=== PATIENT | male | born 1970 | race Two or more races ===

== ENCOUNTER 2016-12-23 15:31 | Emergency (ER) | payer SELFPAY ==
--- NOTE | 2016-12-23 16:57 | RADIOLOGY REPORT (SQ) ---
EXAM DESCRIPTION: CHEST PA/LAT; SOFT TISSUE NECK COMPLETED DATE/TIME: 12/23/2016 4:39 pm REASON FOR STUDY: Pt swallowed metal from wire brush COMPARISON: None. FINDINGS: Two views of the neck for soft tissue detail: Reveal a roughly 9 mm curvilinear metallic presumed foreign body, lateral view only posterior to the thyroid cartilage. Presumably correlating with the ingested metallic wire. Two view chest: Clear lungs. No other foreign bodies identified. No pneumothorax. IMPRESSION: Presumed foreign body, lateral view only, neck image. This appears to be in the upper e sophagus. TECHNICAL DOCUMENTATION: JOB ID: [id number]
--- NOTE | 2016-12-23 18:00 | ER Document Report ---
HPI - HPI Pain Level: 5 Notes: Patient is a 46-year-old male presents to the ED complaining of possible metal foreign body ingestion yesterday while eating a hot dog. Patient states that he believes a piece of metal from his wire brush ended up in his food that he swallowed. Patient states he can feel something in his throat near the base of his neck when he turns his head to the left he can also feel poking. Patient states he still able to eat and drink every time he swallows he feels like there is something stuck in his throat. Otherwise he is still eating and drinking with no problems. Denies any fever, headaches, URI, sore throat, cough , wheeze, dyspnea, shortness of breath, chest pain, palpitations, syncope, abdominal pain, nausea/vomiting/diarrhea, dysuria, or rash. - ROS Notes: REVIEW OF SYSTEMS: CONSTITUTIONAL : Denies fever, chills, or sweats. Denies recent illness. EENT: see HPI CARDIOVASCULAR: Denies chest pain. Denies palpitations or racing or irregular heart beat. Denies ankle edema. RESPIRATORY: Denies cough, cold, or chest congestion. Denies shortness of breath, difficulty breathing, or wheezing. GASTROINTESTINAL: Denies abdominal pain or distention. Denies nausea, vomiting , or diarrhea. Denies blood in vomitus, stools, or per rectum. Denies black, tarry stools. Denies constipation. GENITOURINARY: Denies difficulty urinating, painful urination, burning, frequency, blood in urine, or discharge. MUSCULOSKELETAL: Denies back or neck pain or stiffness. Denies joint pain or swelling. SKIN: Denies rash, lesions or sores. NEUROLOGICAL: Denies dizziness or lightheadedness. Denies headache. Denies problems with gait or speech. Denies sensory loss, numbness, or tingling. ALL OTHER SYSTEMS REVIEWED AND NEGATIVE. Dictation was performed using [employer] voice recognition software - DERM Skin Color: Normal Past Medical History - Social History Smoking Status: Unknown if Ever Smoked Family History: Reviewed & Not Pertinent, Other - Adopted Patient has suicidal ideation: No Patient has homicidal ideation: No - Past Medical History Cardiac Medical History: Denies: Hx Coronary Artery Disease, Hx Heart Attack, Hx Hypertension Pulmonary Medical History: Denies: Hx Asthma, Hx Bronchitis, Hx COPD, Hx Pneumonia Neurological Medical History: Denies: Hx Cerebrovascular Accident, Hx Seizures Renal/ Medical History: Denies: Hx Peritoneal Dialysis GI Medical History: Reports: Hx Gastroesophageal Reflux Disease Musculoskeltal Medical History: 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 HEAD: Atraumatic, normocephalic. EYES: Pupils equal round and reactive to light, extraocular movements intact, sclera anicteric, conjunctiva are normal. ENT: EAC clear b/l. TM's intact b/l without erythema, fluid, or perforation. Nares patent and without discharge. oropharynx clear without exudates. No tonsilar hypertrophy or erythema. Moist mucous membranes. No sinus tenderness. NECK: Normal range of motion, supple without lymphadenopathy. No rigidity. Non -tender. LUNGS: Breath sounds clear to auscultation bilaterally and equal. No wheezes rales or rhonchi. HEART: Regular rate and rhythm without murmurs, rubs, gallops. ABDOMEN: Soft, nontender, nondistended abdomen. No guarding, no rebound. No masses appreciated. Normal bowel sounds present. No CVA tenderness bilaterally. PSYCH: Normal mood, normal affect. SKIN: Warm, Dry, normal turgor, no rashes or lesions noted. - INFECTION CONTROL TRAVEL OUTSIDE OF THE [place] IN LAST 30 DAYS: No - RESPIRATORY O2 Sat by Pulse Oximetry: 98 Course - Re-evaluation Re-evalutation: 12/23/16 [address] Johnson: Patient is an afebrile, well-hydrated, 46-year-old male who presents to the ED with a foreign body to his esophagus suspected to be the reported piece of metal from his wire brush. Vitals are stable. PE otherwise unremarkable. There is no respiratory compromise or distress at this time. X-rays of the neck and the chest show that there is an 8.5-9 mm foreign body to the upper esophagus near the base of his neck. Patient warrants transfer as our general surgeon does not do scopes. CBC, CMP, EKG were ordered and all negative/ unremarkable. Discussed case with Dr. Rey Elliott, ENT, of [facility] who accepted patient on an ED to ED transfer. Patient is in agreement with plan. Risks and benefits reviewed about transfer and needing to get the foreign body out of his esophagus including inability to pass , tears, puncture wound(s), and infection. 12/23/16 20:30 Pt was re-evaluated, vital signs stable, no current complaints. EMS arrived and pt is stable for transport. - Vital Signs Vital signs: Temp Pulse Resp BP Pulse Ox 97.7 F 81 24 H 143/82 H 98 12/23/16 15:36 12/23/16 15:36 12/23/16 15:36 12/23/16 15:36 12/23/16 15:36 - Laboratory Result Diagrams: 12/23/16 18:15 12/23/16 18:15 Discharge - Discharge Clinical Impression: Foreign body in esophagus Qualifiers: Encounter type: initial encounter Qualified Code(s): T18.108A - Unspecified foreign body in esophagus causing other injury, initial encounter Condition: Stable Disposition: [facility] Additional Instructions: Instructions per ENT after Transfer and Procedure.
[2016-12-23] MEDS ORDERED: FENTANYL CITRATE INJ/PF 100 MCG/2 ML AMPUL IV ONE (18:08)
[2016-12-23 18:27] LABS: ABSOLUTE BASOPHILS # (AUTO) 0.1 10^3/uL (0.0-0.2); ABSOLUTE EOSINOPHILS # (AUTO) 0.1 10^3/uL (0.0-0.6); ABSOLUTE LYMPHOCYTES (AUTO) 2.2 10^3/uL (0.5-4.7); ABSOLUTE MONOCYTES (AUTO) 0.8 10^3/uL (0.1-1.4); ABSOLUTE NEUT (AUTO) 5.8 10^3/uL (1.7-8.2); BASOPHILS % (AUTO) 0.6 % (0-2); EOSINOPHILS % (AUTO) 1.3 % (0-6); HEMOGLOBIN 16.5 g/dL (13.5-17.0); HGB HCT DIFFERENCE 0.5; LYMPHOCYTES % (AUTO) 24.7 % (13-45); MEAN CORPUSCULAR HEMOGLOBIN 31.7 pg (27.0-33.4); MEAN CORPUSCULAR HGB CONC 33.6 g/dL (32.0-36.0); MEAN CORPUSCULAR VOLUME 94 fl (80-97); MONOCYTES % (AUTO) 8.7 % (3-13); RED BLOOD COUNT 5.19 10^6/uL (4.35-5.55); RED CELL DISTRIBUTION WIDTH 12.6 % (11.5-14.0); SEGMENTED NEUTROPHILS % (AUTO) 64.7 % (42-78); WHITE BLOOD COUNT 8.9 10^3/uL (4.0-10.5)
[2016-12-23 18:51] LABS: ALANINE AMINOTRANSFERASE 69 U/L (21-72); ALBUMIN 4.6 g/dL (3.5-5.0); ALKALINE PHOSPHATASE 89 U/L (38-126); ANION GAP 12 (5-19); ASPARTATE AMINO TRANSFERASE 44 U/L (17-59); BILIRUBIN,DIRECT 0.3 mg/dL (0.0-0.4); BILIRUBIN,TOTAL 0.7 mg/dL (0.2-1.3); BLOOD UREA NITROGEN 12 mg/dL (7-20); CALCIUM 9.6 mg/dL (8.4-10.2); CARBON DIOXIDE 26 mmol/L (22-30); CHLORIDE 101 mmol/L (98-107); CREATININE RESULT 1.05 mg/dL (0.52-1.25); GLUCOSE 89 mg/dL (75-110); POTASSIUM 4.1 mmol/L (3.6-5.0); SODIUM 138.7 mmol/L (137-145); TOTAL PROTEIN 8.1 g/dL (6.3-8.2)
[2016-12-23 20:13] VITALS: BP 119/75
--- NOTE | 2016-12-23 21:40 | EKG REPORT ---
SEVERITY:- OTHERWISE NORMAL ECG - SINUS RHYTHM LEFT AXIS DEVIATION : Confirmed by: Mark Burroughs 23-Dec-2016 21:39:55
== END 2016-12-23 20:20 | disposition short-term general hospital (02) ==
LOC: ER 15:31
DX: T18.108A Unspecified foreign body in esophagus causing other injury, initial encounter (principal); X58.XXXA Exposure to other specified factors, initial encounter; Y93.89 Activity, other specified
CPT/HCPCS: 93005; 99284; 96374; 36415; 85025; 80053; 71020; 70360; 93010; J3010

== ENCOUNTER 2019-12-28 06:30 | Emergency (ER) | payer BC ==
[2019-12-28 08:57] LABS: ABSOLUTE BASOPHILS # (AUTO) 0.1 10^3/uL (0.0-0.2); ABSOLUTE EOSINOPHILS # (AUTO) 0.1 10^3/uL (0.0-0.6); ABSOLUTE LYMPHOCYTES (AUTO) 1.1 10^3/uL (0.5-4.7); ABSOLUTE MONOCYTES (AUTO) 0.9 10^3/uL (0.1-1.4); ABSOLUTE NEUT (AUTO) 9.3 10^3/uL (1.7-8.2); BASOPHILS % (AUTO) 0.5 % (0-2); EOSINOPHILS % (AUTO) 0.8 % (0-6); HEMATOCRIT 45.1 % (37.9-51.0); MEAN CORPUSCULAR HEMOGLOBIN 32.8 pg (27.0-33.4); MEAN CORPUSCULAR HGB CONC 35.4 g/dL (32.0-36.0); MEAN CORPUSCULAR VOLUME 93 fl (80-97); MONOCYTES % (AUTO) 7.6 % (3-13); PLATELET COUNT 141 10^3/uL (150-450); RED BLOOD COUNT 4.87 10^6/uL (4.35-5.55); RED CELL DISTRIBUTION WIDTH 12.7 % (11.5-14.0); SEGMENTED NEUTROPHILS % (AUTO) 81.1 % (42-78); TOTAL CELLS COUNTED % (AUTO) 100 %; WHITE BLOOD COUNT 11.4 10^3/uL (4.0-10.5)
[2019-12-28] MEDS ORDERED: NORMAL SALINE 1000 ML 1,000 ML IV ONE (08:57)
[2019-12-28] MEDS ORDERED: MORPHINE SULFATE 10 MG/ML INJ IV ONE ×2 (08:58→10:53)
[2019-12-28] MEDS ORDERED: ONDANSETRON HCL INJ/PF 4 MG/2 ML SDV IV ONE ×2 (08:59→10:53)
[2019-12-28 09:10] LABS: APPEARANCE,URINE CLEAR; BILIRUBIN,URINE NEGATIVE (NEGATIVE); COLOR,URINE YELLOW; GLUCOSE, URINE NEGATIVE (NEGATIVE); KETONES,URINE NEGATIVE (NEGATIVE); LEUKOCYTE ESTERASE,URINE NEGATIVE (NEGATIVE); NITRITE,URINE NEGATIVE (NEGATIVE); PROTEIN,URINE NEGATIVE (NEGATIVE); URINE SPECIFIC GRAVITY 1.021; UROBILINOGEN,URINE NEGATIVE mg/dL (<2.0)
[2019-12-28 09:18] LABS: ALBUMIN 4.8 g/dL (3.5-5.0); ALKALINE PHOSPHATASE 87 U/L (38-126); ANION GAP 9 (5-19); ASPARTATE AMINO TRANSFERASE 35 U/L (17-59); BLOOD UREA NITROGEN 17 mg/dL (7-20); CALCIUM 9.7 mg/dL (8.4-10.2); CARBON DIOXIDE 25 mmol/L (22-30); CHLORIDE 101 mmol/L (98-107); GLUCOSE 109 mg/dL (75-110); POTASSIUM 3.9 mmol/L (3.6-5.0); TOTAL PROTEIN 8.1 g/dL (6.3-8.2)
[2019-12-28 09:30] LABS: URIC ACID 9.5 mg/dL (3.5-8.5)
[2019-12-28 09:37] LABS: ALCOHOL < 10 mg/dL (NONE DETECTED)
[2019-12-28 09:57] LABS: URINE AMPHETAMINES SCREEN NEGATIVE; URINE BARBITURATES SCREEN NEGATIVE; URINE BENZODIAZEPINES SCREEN NEGATIVE; URINE COCAINE SCREEN NEGATIVE; URINE METHADONE SCREEN NEGATIVE; URINE PHENCYCLIDINE SCREEN NEGATIVE
[2019-12-28 10:00] LABS: URINE MARIJUANA (THC) SCREEN UNCONFIRMED POSITIVE
--- NOTE | 2019-12-28 12:21 | RADIOLOGY REPORT (SQ) ---
EXAM DESCRIPTION: CT ABD/PELVIS WITH IV ORAL IMAGES COMPLETED DATE/TIME: 12/28/2019 10:54 am REASON FOR STUDY: left lower quadrant pain/prior diverticulitis . Right and left lower quadrant abdominal pain. COMPARISON: 06/28/2015, 02/14/2015 TECHNIQUE: CT scan of the abdomen and pelvis performed using helical scanning technique with dynamic intravenous contrast injection. No oral contrast. Images reviewed with lung, soft tissue, and bone windows. Reconstructed coronal and sagittal MPR images reviewed. Delayed images for evaluation of the urinary system also acquired. All images stored on PACS. All CT scanners at this facility use dose modulation, iterative reconstruction, and/or weight based d osing when appropriate to reduce radiation dose to as low as reasonably achievable (ALARA). [facility]: Dose Right [facility]: CareDose [facility]: Dose Right [facility]: Teradose 4D [facility]: [facility] CONTRAST TYPE AND DOSE: contrast/concentration: Isovue 350.00 mmol/ml; Total Contrast Delivered: 100 .0 ml; Total Saline Delivered: 70.0 ml RENAL FUNCTION: GFR > 60. RADIATION DOSE: CT Rad equipment meets quality standard of care and radiation dose reduction techniq ues were employed. CTDIvol: 17.0 - 20.1 mGy. DLP: 2090 mGy-cm.. LIMITATIONS: None FINDINGS: LOWER CHEST: No significant findings. No nodules or infiltrates. LIVER: The liver is enlarged measuring 26.3 cm craniocaudal at the midclavicular line. Moderate diff use hepatic steatosis. 1 cm hepatic cyst in the right hepatic lobe is unchanged. No suspicious hepa tic mass. Hepatic and portal veins are patent. No biliary ductal dilation. SPLEEN: The spleen is mildly enlarged measuring 13.4 cm craniocaudal at the midclavicular line. No f ocal mass or perisplenic fluid. PANCREAS: No masses. No significant calcifications. No adjacent inflammation or peripancreatic fluid collections. Pancreatic duct not dilated. GALLBLADDER: No identified stones by CT criteria. No inflammatory changes to suggest cholecystitis. ADRENAL GLANDS: No significant masses or asymmetry. RIGHT KIDNEY AND URETER: Right inferior pole parapelvic cyst. No solid mass. No significant calcif ications. No hydronephrosis or hydroureter. LEFT KIDNEY AND URETER: No solid masses. No significant calcifications. No hydronephrosis or hydr oureter. AORTA AND VESSELS: No aneurysm. No dissection. Renal arteries, SMA, celiac without stenosis. RETROPERITONEUM: No retroperitoneal adenopathy, hemorrhage or masses. BOWEL AND PERITONEAL CAVITY: There is sigmoid colon wall thickening and surrounding inflammatory watts ge involving a long segment of the sigmoid colon to the level of the rectum. A few scattered colonic diverticula without acute diverticulitis. There is no bowel obstruction. The proximal colon has a normal appearance. Small hiatal hernia. No ascites or pneumoperitoneum. APPENDIX: Normal. PELVIS: Prostate has normal size. Urinary bladder is relatively decompressed. Despite underdistenti on, there is diffuse bladder wall thickening, which may be reactive secondary to inflammatory change in the pelvis. Bladder wall measures up to 11 mm thickness. ABDOMINAL WALL: No masses. No hernias. BONES: No significant or acute findings. OTHER: No other significant finding. IMPRESSION: 1. Acute sigmoid colitis, which could be seen with infectious or inflammatory colitis such as Crohn d isease. Clinical correlation and correlation with endoscopy after treatment for acute inflammatory c hange is recommended. No perforation or peritoneal abscess. 2. Bladder wall thickening which may be reactive secondary to the inflammatory change adjacent at the sigmoid colon. No focal bladder mass. 3. Small hiatal hernia. TECHNICAL DOCUMENTATION: JOB ID: [id number] Quality ID # [id number]: Final reports with documentation of one or more dose reduction techniques (e.g., Au tomated exposure control, adjustment of the mA and/or kV according to patient size, use of iterative reconstruction technique) 2010 [employer]- All Rights Reserved Reading location - IP/workstation name: [email or web address]
[2019-12-28] MEDS ORDERED: COLCHICINE 0.6 MG TABLET PO ONE (13:56)
[2019-12-28] MEDS ORDERED: METHYLPREDNISOLONE INJ 125 MG/2 ML SDV IV ONE (13:59)
[2019-12-28] MEDS ORDERED: CIPROFLOXACIN 400 MG/D5W RTU 400 MG/200 ML RTUPB IV SCH (14:00)
--- NOTE | 2019-12-28 16:57 | ER Document Report ---
Entered by GUICHO MON SCRIBE 12/28/19 0916 Acting as scribe for:SHANTELL SR MD ED GI/ - General Chief Complaint: Abdominal Pain Stated Complaint: ABDOMINAL AND BACK PAIN Time Seen by Provider: 12/28/19 08:39 Information source: Patient Notes: This 49 year old male patient presents to the emergency department today with complaints of abdominal pain. Patient states he has a history of diverticulitis and this pain is similar. Patient states his urine is normal and reports constipation. Patient states he feels like he needs to pass a bowel movement every x30 min and strains. Patient states he mostly passes gas and denies blood in his stool. Patient states his bowel movement was normal x3 days ago and began to have problems yesterday. Denies fever, chills, or vomiting. Patient also reports some pain in his right foot and denies injury. TRAVEL OUTSIDE OF THE [place] 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 denies: Chills, Fever EENT: No symptoms reported Cardiovascular: No symptoms reported Respiratory: No symptoms reported Gastrointestinal: See HPI, Abdominal pain, Constipation. denies: Vomiting, Blood streaked bowels Genitourinary: See HPI Male Genitourinary: No symptoms reported Musculoskeletal: See HPI Skin: No symptoms reported Hematologic/Lymphatic: No symptoms reported Neurological/Psychological: No symptoms reported -: Yes All other systems reviewed and negative Physical Exam - Vital signs Vitals: Temp Pulse Resp BP Pulse Ox 98.5 F 89 18 155/81 H 99 12/28/19 06:38 12/28/19 06:38 12/28/19 06:38 12/28/19 06:38 12/28/19 06:38 - General General appearance: Appears well, Alert - HEENT Head: Normocephalic, Atraumatic Eyes: Normal Pupils: PERRL - Respiratory Respiratory status: No respiratory distress Chest status: Nontender Breath sounds: Normal Chest palpation: Normal - Cardiovascular Rhythm: Regular Heart sounds: Normal auscultation Murmur: No - Abdominal Inspection: Normal Distension: No distension Bowel sounds: Normal Tenderness: Tender - LLQ, Guarding. No: Rebound Notes: Psoriasis rash on abdomen. - Extremities General upper extremity: Normal inspection. No: Edema General lower extremity: Normal inspection. No: Edema - Neurological Neuro grossly intact: Yes Cognition: Normal Orientation: AAOx4 Speech: Normal - Psychological Associated symptoms: Normal affect, Normal mood - Skin Skin Temperature: Warm Skin Moisture: Dry Skin Color: Normal Course - Re-evaluation Re-evalutation: 12/28/19 16:49 Patient reports his pain is better however still present in the left lower q uadrant region. Patient was diagnosed with colitis based on CT scan of abdomen and pelvis. Patient has colitis of the sigmoid colon. This is a new diagnosis for patient inasmuch as he has had diverticulitis in the past. Patient does not have any rectal bleeding. - Vital Signs Vital signs: Temp Pulse Resp BP Pulse Ox 98.1 F 80 16 152/82 H 99 12/28/19 10:49 12/28/19 10:49 12/28/19 10:49 12/28/19 10:49 12/28/19 10:49 12/28/19 16:50 Vital signs stable - Laboratory Result Diagrams: 12/28/19 08:20 12/28/19 08:20 Laboratory results interpreted by me: 12/28/19 12/28/19 12/28/19 08:20 08:20 08:20 WBC 11.4 H Plt Count 141 L Lymph % (Auto) 10.0 L Absolute Neuts (auto) 9.3 H Seg Neutrophils % 81.1 H Sodium 135.2 L Uric Acid 9.5 H 12/28/19 16:50 Laboratories within normal limits patient has a uric acid level of 9.5. - Diagnostic Test Radiology reviewed: Image reviewed, Reports reviewed Radiology results interpreted by me: 12/28/19 16:50 CT scan of abdomen and pelvis with contrast IV and oral shows sigmoid colon colitis noted. No perforation no other significant findings. Discharge - Discharge Clinical Impression: Colitis, Abdominal pain, Gouty arthritis of right great toe Condition: Stable Disposition: HOME, SELF-CARE Instructions: Abdominal Pain ([facility]), Bulk Laxatives, Oral Narcotic Medication ([facility]) Additional Instructions: . Colitis, Nonspecific Colitis is an inflammatory disease of the large intestine which affects the lining of the bowel. The cause is uncertain, though it is often caused by an infection. In some cases, the symptoms resolve and can return again in the future. Colitis is characterized by abdominal pain, often nausea and vomiting, and either diarrhea or difficulty with bowel movements. Sometimes blood will be present in the bowel movements. Fever is often present as well. Milder cases of colitis can be managed as an outpatient with medications for nausea and vomiting and pain, oral fluid therapy, and perhaps antibiotics, if a bacterial origin is suspected. Antidiarrhea medicine should usually be avoided in colitis. If you have increasing abdominal pain, repeated vomiting, fever, rectal bleeding, or worsening diarrhea, you should return for re-evaluation. At this point time you have a nonspecific colitis. You are going to need follow-up with the gastrointestinal specialist which we will refer you to. We will place you on antibiotics medications and bulk laxatives as needed. Also you will be on a treatment for uric acid elevation as well. Prescriptions: Ciprofloxacin HCl [Cipro 500 mg Tablet] 500 mg PO BID #20 tablet Docusate Sodium [Colace 100 mg Capsule] 100 mg PO BID #60 capsule Hydrocodone/Acetaminophen [Sullivan 5-325 mg Tablet] 1 tab PO QID PRN #10 tablet PRN Reason: Allopurinol [Zyloprim 300 mg Tablet] 300 mg PO DAILY #30 tablet Forms: Return to Work Referrals: FRIEDA PAINTER MD [ACTIVE STAFF] - Follow up in 3-5 days I personally performed the services described in the documentation, reviewed and edited the documentation which was dictated to the scribe in my presence, and it accurately records my words and actions.
[2019-12-28] MEDS ORDERED: HYDROCODONE/ACETAMINOPHEN 5-325 MG (6 TAB/ER DISP) PO PRN (17:08)
[2019-12-28 17:22] VITALS: BP 148/93
== END 2019-12-28 17:22 | disposition home or self-care (01) ==
LOC: ER 06:30
DX: K52.9 Noninfective gastroenteritis and colitis, unspecified (principal); R10.9 Unspecified abdominal pain; M10.9 Gout, unspecified; K59.00 Constipation, unspecified
CPT/HCPCS: 96376; 99284; 96361; 96375; 96365; 36415; 80307 ×2; 83605; 83690; 84550; 85025; 80053; 81001; 74177; J2930; J2270; J2405; J7030; J0744

== ENCOUNTER 2020-01-05 06:39 | Inpatient (IN) | payer BC ==
[2020-01-05 08:47] LABS: ABSOLUTE BASOPHILS # (AUTO) 0.1 10^3/uL (0.0-0.2); ABSOLUTE EOSINOPHILS # (AUTO) 0.1 10^3/uL (0.0-0.6); ABSOLUTE LYMPHOCYTES (AUTO) 1.1 10^3/uL (0.5-4.7); ABSOLUTE MONOCYTES (AUTO) 1.4 10^3/uL (0.1-1.4); BASOPHILS % (AUTO) 0.5 % (0-2); EOSINOPHILS % (AUTO) 0.5 % (0-6); HEMATOCRIT 44.5 % (37.9-51.0); HEMOGLOBIN 15.7 g/dL (13.5-17.0); LYMPHOCYTES % (AUTO) 7.5 % (13-45); MEAN CORPUSCULAR HEMOGLOBIN 32.6 pg (27.0-33.4); MEAN CORPUSCULAR HGB CONC 35.2 g/dL (32.0-36.0); MEAN CORPUSCULAR VOLUME 93 fl (80-97); MONOCYTES % (AUTO) 9.8 % (3-13); PLATELET COUNT 250 10^3/uL (150-450); RED BLOOD COUNT 4.81 10^6/uL (4.35-5.55); SEGMENTED NEUTROPHILS % (AUTO) 81.7 % (42-78); TOTAL CELLS COUNTED % (AUTO) 100 %; WHITE BLOOD COUNT 14.7 10^3/uL (4.0-10.5)
[2020-01-05] MEDS ORDERED: NORMAL SALINE 1000 ML 1,000 ML IV ONE (08:51)
[2020-01-05] MEDS ORDERED: HYDROMORPHONE HCL 2 MG TABLET PO ONE (08:52)
[2020-01-05] MEDS ORDERED: ONDANSETRON HCL INJ/PF 4 MG/2 ML SDV IV ONE ×2 (08:53→13:18)
[2020-01-05 08:55] LABS: APPEARANCE,URINE SLIGHTLY-CLOUDY; BILIRUBIN,URINE NEGATIVE (NEGATIVE); GLUCOSE, URINE NEGATIVE (NEGATIVE); KETONES,URINE NEGATIVE (NEGATIVE); LEUKOCYTE ESTERASE,URINE NEGATIVE (NEGATIVE); NITRITE,URINE NEGATIVE (NEGATIVE); PROTEIN,URINE 30 mg/dL (NEGATIVE); URINE SPECIFIC GRAVITY 1.026; UROBILINOGEN,URINE NEGATIVE mg/dL (<2.0)
[2020-01-05 09:00] LABS: COLOR,URINE DARK YELLOW
[2020-01-05 09:09] LABS: ALBUMIN 4.7 g/dL (3.5-5.0); ALKALINE PHOSPHATASE 95 U/L (38-126); ANION GAP 9 (5-19); ASPARTATE AMINO TRANSFERASE 31 U/L (17-59); BILIRUBIN,TOTAL 1.2 mg/dL (0.2-1.3); BLOOD UREA NITROGEN 16 mg/dL (7-20); CALCIUM 10.1 mg/dL (8.4-10.2); CARBON DIOXIDE 26 mmol/L (22-30); CHLORIDE 101 mmol/L (98-107); GLUCOSE 117 mg/dL (75-110); POTASSIUM 4.1 mmol/L (3.6-5.0); TOTAL PROTEIN 8.2 g/dL (6.3-8.2)
[2020-01-05 09:51] LABS: URINE AMPHETAMINES SCREEN NEGATIVE; URINE BARBITURATES SCREEN NEGATIVE; URINE BENZODIAZEPINES SCREEN NEGATIVE; URINE COCAINE SCREEN NEGATIVE; URINE METHADONE SCREEN NEGATIVE; URINE PHENCYCLIDINE SCREEN NEGATIVE
[2020-01-05 09:53] LABS: URINE MARIJUANA (THC) SCREEN UNCONFIRMED POSITIVE
--- NOTE | 2020-01-05 12:08 | RADIOLOGY REPORT (SQ) ---
EXAM DESCRIPTION: CT ABD/PELVIS WITH IV ORAL IMAGES COMPLETED DATE/TIME: 01/05/2020 11:32 am REASON FOR STUDY: abd pain COMPARISON: 12/28/2019 TECHNIQUE: CT scan of the abdomen and pelvis performed with intravenous and oral contrast using uri alivia scanning technique with dynamic intravenous contrast injection. Images reviewed with lung, soft t issue, and bone windows. Reconstructed coronal and sagittal MPR images reviewed. Delayed images for e valuation of the urinary system also acquired. All images stored on PACS. All CT scanners at this facility use dose modulation, iterative reconstruction, and/or weight based d osing when appropriate to reduce radiation dose to as low as reasonably achievable (ALARA). [facility]: Dose Right [facility]: CareDose [facility]: Dose Right [facility]: Teradose 4D [facility]: [email or web address] CONTRAST TYPE AND DOSE: contrast/concentration: Isovue 350.00 mmol/ml; Total Contrast Delivered: 100 .0 ml; Total Saline Delivered: 72.0 ml RENAL FUNCTION: GFR > 60. RADIATION DOSE: CT Rad equipment meets quality standard of care and radiation dose reduction techniq ues were employed. CTDIvol: 17.5 - 20.0 mGy. DLP: 2221 mGy-cm. . LIMITATIONS: None. FINDINGS: Since 12/28/2019, acute findings are limited to the pelvis. Persistent inflammatory changes associated with thickened loop of sigmoid colon just superior to the urinary bladder. No organized gas fluid collection. No dilated loops. Small retroperitoneal nodes measuring up to 1 cm in short a xis. No ascites. IMPRESSION: Persistent inflammatory changes associated with abnormal sigmoid colon. Differential is refractory diverticulitis versus necrosis associated with underlying mass. No abscess. TECHNICAL DOCUMENTATION: JOB ID: [id number] Quality ID # [id number]: Final reports with documentation of one or more dose reduction techniques (e.g., Au tomated exposure control, adjustment of the mA and/or kV according to patient size, use of iterative reconstruction technique) 2010 [employer]- All Rights Reserved Reading location - IP/workstation name: [email or web address]
[2020-01-05] MEDS ORDERED: VANCOMYCIN HCL INJ 1000 MG VIAL IV ONE (13:07)
[2020-01-05] MEDS ORDERED: PIPERACILLIN/TAZOBACTAM 4.5 GM VIAL IV ONE (13:08)
[2020-01-05] MEDS: HYDROMORPHONE HCL INJ/PF 2 MG/ML AMPULE IV PRN ×2 (13:52→17:23)
--- NOTE | 2020-01-05 15:13 | ER Document Report ---
Entered by TAMIE MCDOWELL SCRIBE 01/05/20 0823 Acting as scribe for:SHANTELL SR MD ED GI/ - General Chief Complaint: Lower Abdominal Pain Stated Complaint: ABDOMINAL PAIN Time Seen by Provider: 01/05/20 07:40 Mode of Arrival: Wheelchair Information source: Patient Notes: This 49 year old male patient with a history of diverticulitis presents to the ED today with complaints of worsening lower abdominal pain for the past x1 week. Patient states that he was seen here last week and was diagnosed with colitis. He was started on Cipro and bulk laxatives and discharged with instructions to follow up with a GI specialist, but states that they won't be able to see him until x10 days after he is done with his antibiotics. He reports shooting pain to his penis and anus when he tries to have a bowel movement, LBM was x2 days ago. He also notes poor appetite for the past week, but denies any nausea, vomiting, blood streaked bowels, or hematuria. TRAVEL OUTSIDE OF THE [place] IN LAST 30 DAYS: No - Related Data Allergies/Adverse Reactions: No Known Allergies Allergy (Verified 12/23/16 15:36) Past Medical History - General Information source: Patient, [facility] Records - Social History Smoking Status: Never Smoker Cigarette use (# per day): No Chew tobacco use (# tins/day): No Frequency of alcohol use: Occasional Drug Abuse: Marijuana Family History: Reviewed & Not Pertinent Patient has suicidal ideation: No Patient has homicidal ideation: No GI Medical History: Reports: Hx Diverticulitis, Hx Gastroesophageal Reflux Disease Musculoskeletal Medical History: Reports Hx Arthritis - ankle from injury Past Surgical History: Reports: Hx Orthopedic Surgery - left ankle - Immunizations Hx Diphtheria, Pertussis, Tetanus Vaccination: No Review of Systems - Review of Systems Constitutional: No symptoms reported EENT: No symptoms reported Cardiovascular: No symptoms reported Respiratory: No symptoms reported Gastrointestinal: See HPI, Abdominal pain, Nausea, Vomiting, Poor appetite, Last bowel movement - x2 days ago, Other - Rectal pain. denies: Blood streaked bowels Genitourinary: See HPI. denies: Hematuria Male Genitourinary: See HPI, Other - Penile pain Musculoskeletal: No symptoms reported Skin: No symptoms reported Hematologic/Lymphatic: No symptoms reported Neurological/Psychological: No symptoms reported -: Yes All other systems reviewed and negative Physical Exam - Vital signs Vitals: Temp Pulse Resp BP Pulse Ox 98.3 F 84 16 141/72 H 99 01/05/20 06:45 01/05/20 06:45 01/05/20 06:45 01/05/20 06:45 01/05/20 06:45 - General General appearance: Alert In distress: None - HEENT Head: Normocephalic, Atraumatic Eyes: Normal Pupils: PERRL - Respiratory Respiratory status: No respiratory distress Chest status: Nontender Breath sounds: Normal Chest palpation: Normal - Cardiovascular Rhythm: Regular Heart sounds: Normal auscultation Murmur: No Friction rub: No Gallop: None auscultated - Abdominal Inspection: Normal Distension: No distension Bowel sounds: Normal Tenderness: Tender - Tenderness to palpation of lower quadrants bilaterally, Guarding, Rebound Organomegaly: No organomegaly - Rectal Stool: Heme negative Notes: Surgical Pathologist present - Back Back: Normal, Nontender - Extremities General upper extremity: Normal inspection General lower extremity: Normal inspection. No: Edema - Neurological Neuro grossly intact: Yes Orientation: AAOx4 [place] Coma Scale Eye Opening: Spontaneous [place] Coma Scale Verbal: Oriented [place] Coma Scale Motor: Obeys Commands R[place] Coma Scale Total: 15 - Psychological Associated symptoms: Normal affect, Normal mood - Skin Skin Temperature: Warm Skin Moisture: Dry Skin Color: Normal Course - Re-evaluation Re-evalutation: 01/05/20 16:58 Patient continues to have pain in his left lower quadrant region with marked guarding and rebound tenderness noted on initial presentation. 01/05/20 17:01 Case was discussed with Dr. Contreras ground transportation operator, who stated that the patient needed to be evaluated by surgeons and also perhaps admitted to the hospitalist Discussed case with Dr. Vail, and based on conversation patient was not a surgical emergent need at this time for any surgery and patient's needs to be treated for his diverticulitis which could be as an outpatient completion of antibiotics Discussed case with Dr. rosario regarding admitting patient to the hospital due to outpatient failure thus far on 7 days of antibiotics as patient condition worsen. - Vital Signs Vital signs: Temp Pulse Resp BP Pulse Ox 98.4 F 77 16 146/72 H 100 01/05/20 16:30 01/05/20 16:30 01/05/20 16:30 01/05/20 16:30 01/05/20 16:30 01/05/20 16:59 Vital signs stable - Laboratory Result Diagrams: 01/05/20 08:26 01/05/20 08:26 Laboratory results interpreted by me: 01/05/20 01/05/20 01/05/20 08:24 08:26 08:26 WBC 14.7 H Lymph % (Auto) 7.5 L Absolute Neuts (auto) 12.0 H Seg Neutrophils % 81.7 H Sodium 136.0 L Glucose 117 H Urine Protein 30 H - Diagnostic Test Radiology reviewed: Image reviewed, Reports reviewed Radiology results interpreted by me: 01/05/20 16:59 CT scan of abdomen and pelvis with IV and oral contrast disclose inflammatory changes in the sigmoid colon unchanged from prior previous CT 1 week ago. However differential includes this time that there could be refractory diverticulitis versus necrosis and/or a mass in the colon. Discharge - Discharge Clinical Impression: Diverticulitis Condition: Good Disposition: ADMITTED INPATIENT Admitting Provider: Yolande (Hospitalist) Unit Admitted: Medical Floor I personally performed the services described in the documentation, reviewed and edited the documentation which was dictated to the scribe in my presence, and it accurately records my words and actions.
[2020-01-05] MEDS ORDERED: ZOLPIDEM TARTRATE 5 MG TABLET PO PRN (17:05)
[2020-01-05] MEDS ORDERED: ACETAMINOPHEN 325 MG TABLET PO PRN (17:05)
[2020-01-05] MEDS ORDERED: MAG HYDROX/AL HYDROX/SIMETH SUSP 30 ML UDCUP PO PRN (17:05)
[2020-01-05] MEDS ORDERED: ONDANSETRON HCL INJ/PF 4 MG/2 ML SDV IV PRN (17:05)
[2020-01-05] MEDS ORDERED: VANCOMYCIN HCL 0 MG in DEXTROSE 5%-WATER 250 ML IV NR (17:15)
[2020-01-05] MEDS ORDERED: LORAZEPAM 1 MG TABLET PO PRN (17:16)
--- NOTE | 2020-01-05 17:19 | PDOC H&P ---
History of Present Illness Admission Date/PCP: 01/05/20 16:05 Patient complains of: abd pain History of Present Illness: KARI MCNULTY is a 49 year old male with a past medical history significant for diverticulitis with perforation, alcohol dependence with continuous use, and marijuana use who presents to the emergency department today with a complaint of 1 week of progressively worsening abdominal discomfort. Patient was seen 7 days ago in the emergency department and found to have diverticulitis by CT; discharged home on Cipro. Patient reports that he initially improved x2 days and then has steadily worsened since. Reports small-volume, soft stools, associated with abdominal cramping. He denies nausea vomiting diarrhea and constipation. Evaluation emergency department revealed stable vital signs, leukocytosis (WBC 14.7; increased from last week), unremarkable chemistry, normal urinalysis, negative occult stool, and UDS positive for THC only. CT imaging showed diverticulitis. Per ED provider, he discussed with surgery who recommended hospitalist admission. He was provided IV Zosyn and vancomycin and referred to the hospitalist service for admission and management of the above complaints and findings. Past Medical History Cardiac Medical History: Reports: None Pulmonary Medical History: Reports: None EENT Medical History: Reports: None Neurological Medical History: Reports: None Endocrine Medical History: Reports: Obesity Renal/ Medical History: Reports: None Malignancy Medical History: Reports: None GI Medical History: Reports: Diverticulitis, Gastroesophageal Reflux Disease Musculoskeltal Medical History: Reports: Arthritis - ankle from injury Skin Medical History: Reports: None Psychiatric Medical History: Reports: Alcohol Dependency, Substance Abuse, Tobacco Dependency Traumatic Medical History: Reports: None Hematology: Denies: Anemia Infectious Medical History: Reports: None Past Surgical History Past Surgical History: Reports: Orthopedic Surgery - left ankle, Other - Percutaneous drain placement related to perforated diverticulum Social History Information Source: Patient Lives with: Alone Smoking Status: Never Smoker Electronic Cigarette use?: No Frequency of Alcohol Use: Heavy Hx Recreational Drug Use: Yes Drugs: Marijuana Hx Prescription Drug Abuse: No - Advance Directive Resuscitation Status: Full Code Family History Family History: Reviewed & Not Pertinent Parental Family History Reviewed: Yes Children Family History Reviewed: Yes Sibling(s) Family History Reviewed.: Yes Medication/Allergy Home Medications: Allopurinol [Zyloprim 300 mg Tablet] 300 mg PO DAILY #30 tablet 12/28/19 Ciprofloxacin HCl [Cipro 500 mg Tablet] 500 mg PO BID #20 tablet 12/28/19 Docusate Sodium [Colace 100 mg Capsule] 100 mg PO BID #60 capsule 12/28/19 Allergies/Adverse Reactions: No Known Allergies Allergy (Verified 12/23/16 15:36) Review of Systems Constitutional: PRESENT: anorexia. ABSENT: chills, fever(s), headache(s), weight gain, weight loss Eyes: ABSENT: visual disturbances Ears: ABSENT: hearing changes Cardiovascular: ABSENT: chest pain, dyspnea on exertion, edema, orthropnea, palpitations Respiratory: ABSENT: cough, hemoptysis Gastrointestinal: PRESENT: abdominal pain, bloating. ABSENT: constipation, diarrhea, hematemesis, hematochezia, nausea, vomiting Genitourinary: ABSENT: dysuria, hematuria Musculoskeletal: ABSENT: joint swelling Integumentary: ABSENT: rash, wounds Neurological: ABSENT: abnormal gait, abnormal speech, confusion, dizziness, focal weakness, syncope Psychiatric: ABSENT: anxiety, depression, homidical ideation, suicidal ideation Endocrine: ABSENT: cold intolerance, heat intolerance, polydipsia, polyuria Hematologic/Lymphatic: ABSENT: easy bleeding, easy bruising Physical Exam Vital Signs: Temp Pulse Resp BP Pulse Ox 98.3 F 84 16 141/72 H 99 01/05/20 06:45 01/05/20 06:45 01/05/20 06:45 01/05/20 06:45 01/05/20 06:45 Intake & Output 01/04/20 01/05/20 01/06/20 06:59 06:59 06:59 Intake Total 1000 Balance 1000 Weight 100.698 kg General appearance: PRESENT: no acute distress, well-developed, well-nourished Head exam: PRESENT: atraumatic, normocephalic Eye exam: PRESENT: conjunctiva pink, EOMI, PERRLA. ABSENT: scleral icterus Mouth exam: PRESENT: moist, tongue midline Respiratory exam: PRESENT: clear to auscultation jose l, symmetrical, unlabored. ABSENT: rales, rhonchi, wheezes Cardiovascular exam: PRESENT: RRR. ABSENT: diastolic murmur, rubs, systolic murmur Vascular exam: PRESENT: normal capillary refill GI/Abdominal exam: PRESENT: hyperactive bowel sounds, soft, tenderness. ABSENT: distended, guarding, mass, organolmegaly, rebound Rectal exam: PRESENT: deferred Extremities exam: PRESENT: full ROM. ABSENT: calf tenderness, clubbing, pedal edema Musculoskeletal exam: PRESENT: ambulatory Neurological exam: PRESENT: alert, awake, oriented to person, oriented to place, oriented to time, oriented to situation, CN II-XII grossly intact. ABSENT: motor sensory deficit Psychiatric exam: PRESENT: appropriate affect, normal mood. ABSENT: homicidal ideation, suicidal ideation Skin exam: PRESENT: dry, intact, warm. ABSENT: cyanosis, rash Results Laboratory Results: 01/05/20 08:26 01/05/20 08:26 01/05/20 01/05/20 01/05/20 08:24 08:26 08:26 WBC 14.7 H RBC 4.81 Hgb 15.7 Hct 44.5 MCV 93 MCH 32.6 MCHC 35.2 RDW 12.0 Plt Count 250 Seg Neutrophils % 81.7 H Sodium 136.0 L Potassium 4.1 Chloride 101 Carbon Dioxide 26 Anion Gap 9 BUN 16 Creatinine 1.07 Est GFR ( Amer) > 60 Glucose 117 H Lactic Acid Calcium 10.1 Total Bilirubin 1.2 AST 31 Alkaline Phosphatase 95 Total Protein 8.2 Albumin 4.7 Lipase 49.3 Urine Color DARK YELLOW Urine Appearance SLIGHTLY-CLOUDY Urine pH 5.0 Ur Specific [place] 1.026 Urine Protein 30 H Urine Glucose (UA) NEGATIVE Urine Ketones NEGATIVE Urine Blood NEGATIVE Urine Nitrite NEGATIVE Ur Leukocyte Esterase NEGATIVE Urine WBC (Auto) 1 Urine RBC (Auto) 0 01/05/20 09:44 WBC RBC Hgb Hct MCV MCH MCHC RDW Plt Count Seg Neutrophils % Sodium Potassium Chloride Carbon Dioxide Anion Gap BUN Creatinine Est GFR ( Amer) Glucose Lactic Acid 1.0 Calcium Total Bilirubin AST Alkaline Phosphatase Total Protein Albumin Lipase Urine Color Urine Appearance Urine pH Ur Specific [place] Urine Protein Urine Glucose (UA) Urine Ketones Urine Blood Urine Nitrite Ur Leukocyte Esterase Urine WBC (Auto) Urine RBC (Auto) Impressions: Abdomen/Pelvis CT 01/05/20 00:00 IMPRESSION: Persistent inflammatory changes associated with abnormal sigmoid colon. Differential is refractory diverticulitis versus necrosis associated with underlying mass. No abscess. Assessment and Plan - Diagnosis (1) Diverticulitis Qualifiers: Diverticulitis site: large intestine Diverticulitis bleeding: without bleeding Diverticulitis complication: without perforation or abscess Qualified Code(s): K57.32 - Diverticulitis of large intestine without perforation or abscess without bleeding Is this a current diagnosis for this admission?: Yes Plan: CT imaging shows persistent inflammatory changes to the sigmoid colon consistent with refractory diverticulitis. Failed outpatient p.o. Cipro. Blood cultures pending. Stool cultures pending. Patient is admitted to the medical floor. He is placed on IV vancomycin and Zosyn. Will adjust as cultures result. Clear liquid diet; advance slowly as tolerated. Antiemetics and analgesics as needed. (2) Alcohol dependence Is this a current diagnosis for this admission?: Yes Plan: Alcohol cessation is encouraged. Patient is placed on daily thiamine and folic acid supplementation. He is placed on scheduled Valium 5 mg every 6 hours. PRN p.o. Ativan as needed for anxiety/agitation (3) Marijuana use Is this a current diagnosis for this admission?: Yes Plan: Cessation encouraged. (4) Leukocytosis Is this a current diagnosis for this admission?: Yes Plan: Secondary to #1. Evaluation management as above. - Time Time Spent with patient: 35 or more minutes Medications reviewed and adjusted accordingly: Yes Anticipated discharge: Home Within: within 48 hours
--- NOTE | 2020-01-05 18:19 | RADIOLOGY REPORT (SQ) ---
EXAM DESCRIPTION: CHEST SINGLE VIEW IMAGES COMPLETED DATE/TIME: 01/05/2020 5:30 pm REASON FOR STUDY: abdominal pain/admission COMPARISON: 12/23/2016 EXAM PARAMETERS: NUMBER OF VIEWS: One view. TECHNIQUE: Single frontal radiographic view of the chest acquired. RADIATION DOSE: NA LIMITATIONS: None. FINDINGS: LUNGS AND PLEURA: No opacities, masses or pneumothorax. No pleural effusion. MEDIASTINUM AND HILAR STRUCTURES: No masses. Contour normal. HEART AND VASCULAR STRUCTURES: Heart normal in size. Normal vasculature. BONES: No acute findings. HARDWARE: None in the chest. OTHER: No other significant finding. IMPRESSION: 1. NO ACUTE RADIOGRAPHIC FINDING IN THE CHEST. TECHNICAL DOCUMENTATION: JOB ID: [id number] [employer]- All Rights Reserved Reading location - IP/workstation name: [email or web address]
[2020-01-05] MEDS: DIAZEPAM 5 MG TABLET PO SCH ×2 (18:34→23:32)
[2020-01-05] MEDS: PIPERACILLIN SODIUM/TAZOBACTAM 3.375 GM in NORMAL SALINE 100 ML IV SCH ×2 (19:50→23:32)
[2020-01-05] MEDS: OXYCODONE-ACETAMINOPHEN 5-325 MG TABLET PO PRN (20:05)
[2020-01-05] MEDS: FAMOTIDINE 20 MG TABLET PO SCH (21:36)
[2020-01-05] MEDS: HEPARIN SOD (PORCINE) 5,000 UNIT/ML 1 ML VIAL SUBCUT SCH (21:37)
--- NOTE | 2020-01-05 21:47 | EKG REPORT ---
SEVERITY:- OTHERWISE NORMAL ECG - SINUS RHYTHM BORDERLINE LEFT AXIS DEVIATION : Confirmed by: Teodoro Le MD 05-Jan-2020 21:46:46
[2020-01-06] MEDS: VANCOMYCIN HCL 1,250 MG in DEXTROSE 5%-WATER 250 ML IV SCH ×2 (01:18→09:07)
[2020-01-06] MEDS: HYDROMORPHONE HCL INJ/PF 2 MG/ML AMPULE IV PRN (04:14)
[2020-01-06] MEDS: PIPERACILLIN SODIUM/TAZOBACTAM 3.375 GM in NORMAL SALINE 100 ML IV SCH ×4 (05:53→23:37)
[2020-01-06] MEDS: DIAZEPAM 5 MG TABLET PO SCH ×4 (05:53→23:37)
[2020-01-06 05:56] LABS: HEMATOCRIT 39.6 % (37.9-51.0); HEMOGLOBIN 14.2 g/dL (13.5-17.0); MEAN CORPUSCULAR HEMOGLOBIN 33.2 pg (27.0-33.4); MEAN CORPUSCULAR HGB CONC 35.8 g/dL (32.0-36.0); MEAN CORPUSCULAR VOLUME 93 fl (80-97); PLATELET COUNT 208 10^3/uL (150-450); RED BLOOD COUNT 4.26 10^6/uL (4.35-5.55); WHITE BLOOD COUNT 10.9 10^3/uL (4.0-10.5)
[2020-01-06] MEDS: HEPARIN SOD (PORCINE) 5,000 UNIT/ML 1 ML VIAL SUBCUT SCH ×3 (05:59→21:33)
[2020-01-06 06:08] LABS: ANION GAP 6 (5-19); BLOOD UREA NITROGEN 12 mg/dL (7-20); CALCIUM 9.3 mg/dL (8.4-10.2); CARBON DIOXIDE 30 mmol/L (22-30); CHLORIDE 98 mmol/L (98-107); GLUCOSE 108 mg/dL (75-110); POTASSIUM 4.2 mmol/L (3.6-5.0)
[2020-01-06] MEDS: FOLIC ACID 1 MG TABLET PO SCH (09:07)
[2020-01-06] MEDS: DOCUSATE SODIUM 100 MG CAPSULE PO SCH (09:07)
[2020-01-06] MEDS: FAMOTIDINE 20 MG TABLET PO SCH ×2 (09:07→21:33)
[2020-01-06] MEDS: THIAMINE HCL 100 MG TABLET PO SCH (09:07)
[2020-01-06] MEDS: NORMAL SALINE 1000 ML 1,000 ML IV PRN ×2 (09:08→19:24)
[2020-01-06] MEDS: OXYCODONE-ACETAMINOPHEN 5-325 MG TABLET PO PRN ×4 (09:20→23:37)
[2020-01-06] MEDS ORDERED: KETOROLAC TROMETHAMINE INJ/PF 30 MG/1 ML SDV IV PRN (11:06)
[2020-01-06] MEDS: ALLOPURINOL 300 MG TABLET PO SCH (11:46)
--- NOTE | 2020-01-06 17:40 | PDOC PROGRESS REPORT ---
Subjective Progress Note for:: 01/06/20 Subjective:: KARI MCNULTY is a 49 year old male with a past medical history significant for diverticulitis with perforation, alcohol dependence with continuous use, and marijuana use who was admitted 01/05/2020 with refractory diverticulitis; failed outpatient p.o. Cipro. Patient was seen on morning rounds. He was found resting in bed, comfortably, on room air. He reports continued intermittent lower abdominal discomfort. He denies associated nausea, vomiting, diarrhea. He reports that his abdominal discomfort improves with external pressure and bearing down. He does request increase in pain medication regiment. He further denies fever, chills, chest pain, palpitations, dyspnea, orthopnea. He has no other questions or concerns at this time. No concerns per nursing. Reason For Visit: COLITIS Physical Exam Vital Signs: Temp Pulse Resp BP Pulse Ox 100.2 F 93 16 119/68 100 01/06/20 14:54 01/06/20 14:54 01/06/20 14:54 01/06/20 14:54 01/06/20 14:54 Intake & Output 01/05/20 01/06/20 01/07/20 06:59 06:59 06:59 Intake Total 2270 100 Balance 2270 100 Weight 100.698 kg 102.3 kg General appearance: PRESENT: no acute distress, cooperative, obese, well- developed, well-nourished Head exam: PRESENT: atraumatic, normocephalic Eye exam: PRESENT: conjunctiva pink, EOMI, PERRLA. ABSENT: scleral icterus Mouth exam: PRESENT: moist, tongue midline Respiratory exam: PRESENT: clear to auscultation jose l, symmetrical, unlabored. ABSENT: rales, rhonchi, wheezes Cardiovascular exam: PRESENT: RRR, +S1, +S2. ABSENT: diastolic murmur, rubs, systolic murmur Vascular exam: PRESENT: normal capillary refill GI/Abdominal exam: PRESENT: hyperactive bowel sounds, soft, tenderness. ABSENT: distended, guarding, mass, organolmegaly, rebound Rectal exam: PRESENT: deferred Extremities exam: PRESENT: full ROM. ABSENT: calf tenderness, clubbing, pedal edema Musculoskeletal exam: PRESENT: ambulatory Neurological exam: PRESENT: alert, awake, oriented to person, oriented to place, oriented to time, oriented to situation, CN II-XII grossly intact. ABSENT: motor sensory deficit Psychiatric exam: PRESENT: appropriate affect, normal mood. ABSENT: homicidal ideation, suicidal ideation Skin exam: PRESENT: dry, intact, warm. ABSENT: cyanosis, rash Results Laboratory Results: 01/06/20 05:32 01/06/20 05:32 01/06/20 01/06/20 05:32 05:32 WBC 10.9 H RBC 4.26 L Hgb 14.2 Hct 39.6 MCV 93 MCH 33.2 MCHC 35.8 RDW 12.0 Plt Count 208 Sodium 134.1 L Potassium 4.2 Chloride 98 Carbon Dioxide 30 Anion Gap 6 BUN 12 Creatinine 1.09 Est GFR ( Amer) > 60 Glucose 108 Calcium 9.3 Impressions: Abdomen/Pelvis CT 01/05/20 00:00 IMPRESSION: Persistent inflammatory changes associated with abnormal sigmoid colon. Differential is refractory diverticulitis versus necrosis associated with underlying mass. No abscess. Chest X-Ray 01/05/20 17:04 IMPRESSION: 1. NO ACUTE RADIOGRAPHIC FINDING IN THE CHEST. Assessment and Plan - Diagnosis (1) Diverticulitis Qualifiers: Diverticulitis site: large intestine Diverticulitis bleeding: without bleeding Diverticulitis complication: without perforation or abscess Qualified Code(s): K57.32 - Diverticulitis of large intestine without perforation or abscess without bleeding Is this a current diagnosis for this admission?: Yes Plan: CT imaging shows persistent inflammatory changes to the sigmoid colon consistent with refractory diverticulitis. Failed outpatient p.o. Cipro. Blood cultures have no growth at 24 hours Stool cultures pending; has not had a bowel movement. Patient is admitted to the medical floor. He was placed on empiric antibiotics. Received 1 day of IV vancomycin; discontinued. Continues on IV Zosyn; day #2. Clear liquid diet; advance slowly as tolerated. Antiemetics and analgesics as needed. (2) Alcohol dependence Is this a current diagnosis for this admission?: Yes Plan: Alcohol cessation is encouraged. Patient is placed on daily thiamine and folic acid supplementation. He is placed on scheduled Valium 5 mg every 6 hours. Monitor for evidence of withdrawal. PRN p.o. Ativan as needed for anxiety/agitation (3) Marijuana use Is this a current diagnosis for this admission?: Yes Plan: Cessation encouraged. (4) Leukocytosis Is this a current diagnosis for this admission?: Yes Plan: Improved; secondary to #1. Evaluation management as above. - Time Time Spent with patient: 25-34 minutes Medications reviewed and adjusted accordingly: Yes Anticipated discharge: Home Within: within 48 hours
[2020-01-07] MEDS: NORMAL SALINE 1000 ML 1,000 ML IV PRN ×2 (04:27→17:02)
[2020-01-07] MEDS: OXYCODONE-ACETAMINOPHEN 5-325 MG TABLET PO PRN ×4 (04:28→21:24)
[2020-01-07 05:27] LABS: HEMATOCRIT 38.5 % (37.9-51.0); HEMOGLOBIN 13.7 g/dL (13.5-17.0); MEAN CORPUSCULAR HEMOGLOBIN 32.8 pg (27.0-33.4); MEAN CORPUSCULAR HGB CONC 35.6 g/dL (32.0-36.0); MEAN CORPUSCULAR VOLUME 92 fl (80-97); PLATELET COUNT 218 10^3/uL (150-450); RED BLOOD COUNT 4.17 10^6/uL (4.35-5.55); RED CELL DISTRIBUTION WIDTH 12.2 % (11.5-14.0); WHITE BLOOD COUNT 10.3 10^3/uL (4.0-10.5)
[2020-01-07] MEDS: DIAZEPAM 5 MG TABLET PO SCH ×3 (05:40→17:01)
[2020-01-07] MEDS: PIPERACILLIN SODIUM/TAZOBACTAM 3.375 GM in NORMAL SALINE 100 ML IV SCH ×3 (05:41→17:01)
[2020-01-07] MEDS: HEPARIN SOD (PORCINE) 5,000 UNIT/ML 1 ML VIAL SUBCUT SCH ×3 (05:41→21:24)
[2020-01-07] MEDS: THIAMINE HCL 100 MG TABLET PO SCH (09:06)
[2020-01-07] MEDS: DOCUSATE SODIUM 100 MG CAPSULE PO SCH (09:07)
[2020-01-07] MEDS: ALLOPURINOL 300 MG TABLET PO SCH (09:07)
[2020-01-07] MEDS: FAMOTIDINE 20 MG TABLET PO SCH ×2 (09:07→21:24)
[2020-01-07] MEDS: FOLIC ACID 1 MG TABLET PO SCH (09:07)
--- NOTE | 2020-01-07 18:47 | PDOC PROGRESS REPORT ---
Subjective Progress Note for:: 01/07/20 Subjective:: KARI MCNULTY is a 49 year old male with a past medical history significant for diverticulitis with perforation, alcohol dependence with continuous use, and marijuana use who was admitted 01/05/2020 with refractory diverticulitis; failed outpatient p.o. Cipro. Patient was seen on morning rounds. He was found sitting up to the recliner, comfortably, on room air. He reports continued intermittent lower abdominal discomfort; although improved. He denies associated nausea, vomiting, diarrhea. Appetite is improved. Did have a small bm today w/o severe pain as previously. He further denies fever, chills, chest pain, palpitations, dyspnea, orthopnea. He has no other questions or concerns at this time. No concerns per nursing. Reason For Visit: COLITIS Physical Exam Vital Signs: Temp Pulse Resp BP Pulse Ox 98.0 F 71 16 117/77 99 01/07/20 15:19 01/07/20 15:19 01/07/20 15:19 01/07/20 15:19 01/07/20 15:19 Intake & Output 01/06/20 01/07/20 01/08/20 06:59 06:59 06:59 Intake Total 2270 4950 1200 Balance 2270 4950 1200 Weight 102.3 kg 102.8 kg General appearance: PRESENT: no acute distress, cooperative, obese, well- developed, well-nourished Head exam: PRESENT: atraumatic, normocephalic Eye exam: PRESENT: conjunctiva pink, EOMI, PERRLA. ABSENT: scleral icterus Mouth exam: PRESENT: moist, tongue midline Respiratory exam: PRESENT: clear to auscultation jose l, symmetrical, unlabored. ABSENT: rales, rhonchi, wheezes Cardiovascular exam: PRESENT: RRR. ABSENT: diastolic murmur, rubs, systolic murmur Vascular exam: PRESENT: normal capillary refill GI/Abdominal exam: PRESENT: hyperactive bowel sounds, soft, tenderness. ABSENT: distended, guarding, mass, organolmegaly, rebound Rectal exam: PRESENT: deferred Extremities exam: PRESENT: full ROM. ABSENT: calf tenderness, clubbing, pedal edema Musculoskeletal exam: PRESENT: ambulatory Neurological exam: PRESENT: alert, awake, oriented to person, oriented to place, oriented to time, oriented to situation, CN II-XII grossly intact. ABSENT: motor sensory deficit Psychiatric exam: PRESENT: appropriate affect, normal mood. ABSENT: homicidal ideation, suicidal ideation Skin exam: PRESENT: dry, intact, warm. ABSENT: cyanosis, rash Results Laboratory Results: 01/07/20 04:43 01/06/20 05:32 01/07/20 04:43 WBC 10.3 RBC 4.17 L Hgb 13.7 Hct 38.5 MCV 92 MCH 32.8 MCHC 35.6 RDW 12.2 Plt Count 218 Impressions: Abdomen/Pelvis CT 01/05/20 00:00 IMPRESSION: Persistent inflammatory changes associated with abnormal sigmoid colon. Differential is refractory diverticulitis versus necrosis associated with underlying mass. No abscess. Chest X-Ray 01/05/20 17:04 IMPRESSION: 1. NO ACUTE RADIOGRAPHIC FINDING IN THE CHEST. Assessment and Plan - Diagnosis (1) Diverticulitis Qualifiers: Diverticulitis site: large intestine Diverticulitis bleeding: without bleeding Diverticulitis complication: without perforation or abscess Qualified Code(s): K57.32 - Diverticulitis of large intestine without per foration or abscess without bleeding Is this a current diagnosis for this admission?: Yes Plan: Improved; afebrile, leukocytosis is resolved. Decreased pain with improved appetite. CT imaging shows persistent inflammatory changes to the sigmoid colon consistent with refractory diverticulitis. Failed outpatient p.o. Cipro. Blood cultures have no growth at 48 hours Stool cultures pending Occult stool negative. Patient is admitted to the medical floor. He was placed on empiric antibiotics. Received 1 day of IV vancomycin; discontinued. Continues on IV Zosyn; day #3. We will plan on transitioning to Augmentin tomorrow if he remains clinically improved. Full liquid diet; advance slowly as tolerated. Antiemetics and analgesics as needed. (2) Alcohol dependence Is this a current diagnosis for this admission?: Yes Plan: Alcohol cessation is encouraged. Patient is placed on daily thiamine and folic acid supplementation. He is placed on scheduled Valium 5 mg every 6 hours. Monitor for evidence of withdrawal. PRN p.o. Ativan as needed for anxiety/agitation (3) Marijuana use Is this a current diagnosis for this admission?: Yes Plan: Cessation encouraged. (4) Leukocytosis Is this a current diagnosis for this admission?: Yes Plan: Resolved; secondary to #1. Evaluation management as above. - Time Time Spent with patient: 25-34 minutes Medications reviewed and adjusted accordingly: Yes Anticipated discharge: Home Within: within 24 hours
[2020-01-08] MEDS: DIAZEPAM 5 MG TABLET PO SCH ×3 (00:19→11:10)
[2020-01-08] MEDS: PIPERACILLIN SODIUM/TAZOBACTAM 3.375 GM in NORMAL SALINE 100 ML IV SCH ×3 (00:20→11:10)
[2020-01-08] MEDS: OXYCODONE-ACETAMINOPHEN 5-325 MG TABLET PO PRN ×2 (04:38→08:51)
[2020-01-08 05:28] LABS: HEMATOCRIT 36.2 % (37.9-51.0); HEMOGLOBIN 13.1 g/dL (13.5-17.0); MEAN CORPUSCULAR HEMOGLOBIN 33.1 pg (27.0-33.4); MEAN CORPUSCULAR HGB CONC 36.1 g/dL (32.0-36.0); MEAN CORPUSCULAR VOLUME 92 fl (80-97); PLATELET COUNT 220 10^3/uL (150-450); RED BLOOD COUNT 3.95 10^6/uL (4.35-5.55); RED CELL DISTRIBUTION WIDTH 12.3 % (11.5-14.0); WHITE BLOOD COUNT 9.4 10^3/uL (4.0-10.5)
[2020-01-08 05:44] LABS: ANION GAP 6 (5-19); BLOOD UREA NITROGEN 9 mg/dL (7-20); CALCIUM 9.2 mg/dL (8.4-10.2); CARBON DIOXIDE 25 mmol/L (22-30); CHLORIDE 104 mmol/L (98-107); GLUCOSE 96 mg/dL (75-110); POTASSIUM 4.1 mmol/L (3.6-5.0)
[2020-01-08] MEDS: HEPARIN SOD (PORCINE) 5,000 UNIT/ML 1 ML VIAL SUBCUT SCH (05:55)
[2020-01-08] MEDS: NORMAL SALINE 1000 ML 1,000 ML IV PRN (08:52)
[2020-01-08] MEDS: FOLIC ACID 1 MG TABLET PO SCH (09:46)
[2020-01-08] MEDS: ALLOPURINOL 300 MG TABLET PO SCH (09:46)
[2020-01-08] MEDS: FAMOTIDINE 20 MG TABLET PO SCH (09:46)
[2020-01-08] MEDS: THIAMINE HCL 100 MG TABLET PO SCH (09:46)
[2020-01-08] MEDS: DOCUSATE SODIUM 100 MG CAPSULE PO SCH (09:46)
[2020-01-08 09:53] VITALS: BP 109/62
--- NOTE | 2020-01-10 18:14 | PDOC DISCHARGE SUMMARY ---
Impression - Admit/DC Date/PCP Admission Date/Primary Care Provider: 01/05/20 16:05 Discharge Date: 01/08/20 - Discharge Diagnosis (1) Diverticulitis Is this a current diagnosis for this admission?: Yes (2) Alcohol dependence Is this a current diagnosis for this admission?: Yes (3) Marijuana use Is this a current diagnosis for this admission?: Yes (4) Leukocytosis Is this a current diagnosis for this admission?: Yes - Additional Information Resuscitation Status: Full Code Discharge Diet: As Tolerated, Regular Discharge Activity: Activity As Tolerated, Balance Activity w/Rest, Slowly Inc rease Activity Referrals: [facility] [place] [Provider Group] - 01/18/20 10:00 am FRIEDA PAINTER MD [ACTIVE STAFF] - 01/15/20 1:00 pm (Follow up within 4-6 weeks for recurrent colitis/diverticulitis) Prescriptions: Amoxicillin/Potassium Clav [Augmentin 875-125 Tablet] 1 tab PO BID #20 tab Folic Acid [Folvite 1 mg Tablet] 1 mg PO DAILY #90 tablet Oxycodone HCl/Acetaminophen [Percocet 5-325 mg Tablet] 1 tab PO Q4HP PRN #20 tablet PRN Reason: Thiamine HCl [Thiamine 100 mg Tablet] 100 mg PO DAILY #90 tablet Ondansetron [Zofran Odt 4 mg Tablet] 1 - 2 tab PO Q4HP PRN #10 tab.rapdis PRN Reason: Home Medications: Allopurinol [Zyloprim 300 mg Tablet] 300 mg PO DAILY #30 tablet 12/28/19 Docusate Sodium [Colace 100 mg Capsule] 100 mg PO BID #60 capsule 12/28/19 Acetaminophen [Tylenol 325 mg Tablet] 650 mg PO Q4HP PRN tablet 01/08/20 Amoxicillin/Potassium Clav [Augmentin 875-125 Tablet] 1 tab PO BID #20 tab 0 01/08/20 Folic Acid [Folvite 1 mg Tablet] 1 mg PO DAILY #90 tablet 01/08/20 Ondansetron [Zofran Odt 4 mg Tablet] 1 - 2 tab PO Q4HP PRN #10 tab.rapdis 01/08/20 Oxycodone HCl/Acetaminophen [Percocet 5-325 mg Tablet] 1 tab PO Q4HP PRN #20 tablet 01/08/20 Thiamine HCl [Thiamine 100 mg Tablet] 100 mg PO DAILY #90 tablet 01/08/20 History of Present Illiness History of Present Illness: KARI MCNULTY is a 49 year old male with a past medical history significant for diverticulitis with perforation, alcohol dependence with continuous use, and marijuana use who presents to the emergency department today with a complaint of 1 week of progressively worsening abdominal discomfort. Patient was seen 7 days ago in the emergency department and found to have diverticulitis by CT; discharged home on Cipro. Patient reports that he initially improved x2 days and then has steadily worsened since. Reports small-volume, soft stools, associated with abdominal cramping. He denies nausea vomiting diarrhea and constipation. Evaluation emergency department revealed stable vital signs, leukocytosis (WBC 14.7; increased from last week), unremarkable chemistry, normal urinalysis, negative occult stool, and UDS positive for THC only. CT imaging showed diverticulitis. Per ED provider, he discussed with surgery who recommended hospitalist admission. He was provided IV Zosyn and vancomycin and referred to the hospitalist service for admission and management of the above complaints and findings. Hospital Course Hospital Course: (1) Diverticulitis Improved; afebrile, leukocytosis is resolved. Decreased pain with improved appetite. Tolerating p.o. intake. CT imaging shows persistent inflammatory changes to the sigmoid colon consistent with refractory diverticulitis. Failed outpatient p.o. Cipro. Blood cultures NGTD Stool cultures pending Occult stool negative. Patient was admitted to the medical floor. He was placed on empiric antibiotics. Received 1 day of IV vancomycin; discontinued. Received IV Zosyn x4 days Transitioned to p.o. Augementin to complete full course of antibiotic therapy. Diet was advanced slowly as tolerated. (2) Alcohol dependence Alcohol cessation is encouraged. Patient is placed on daily thiamine and folic acid supplementation. He received scheduled Valium 5 mg every 6 hours. No evidence of withdrawal this admission (3) Marijuana use Cessation encouraged. (4) Leukocytosis Resolved; secondary to #1. Evaluation management as above. Physical Exam Vital Signs: Temp Pulse Resp BP Pulse Ox 98.4 F 72 18 109/62 98 01/08/20 12:15 01/08/20 12:15 01/08/20 12:15 01/08/20 12:15 01/08/20 12:15 Intake & Output 07/01/10/20 01/11/20 06:59 06:59 06:59 Intake Total 100 Balance 100 General appearance: PRESENT: no acute distress, cooperative, obese, well- developed, well-nourished Head exam: PRESENT: atraumatic, normocephalic Eye exam: PRESENT: conjunctiva pink, EOMI, PERRLA. ABSENT: scleral icterus Mouth exam: PRESENT: moist, tongue midline Respiratory exam: PRESENT: clear to auscultation jose l, symmetrical, unlabored. ABSENT: rales, rhonchi, wheezes Cardiovascular exam: PRESENT: RRR. ABSENT: diastolic murmur, rubs, systolic murmur Vascular exam: PRESENT: normal capillary refill GI/Abdominal exam: PRESENT: normal bowel sounds, soft, tenderness - improved. ABSENT: distended, guarding, mass, organolmegaly, rebound Rectal exam: PRESENT: deferred Extremities exam: PRESENT: full ROM. ABSENT: calf tenderness, clubbing, pedal edema Musculoskeletal exam: PRESENT: ambulatory Neurological exam: PRESENT: alert, awake, oriented to person, oriented to place, oriented to time, oriented to situation, CN II-XII grossly intact. ABSENT: motor sensory deficit Psychiatric exam: PRESENT: appropriate affect, normal mood. ABSENT: homicidal ideation, suicidal ideation Skin exam: PRESENT: dry, intact, warm. ABSENT: cyanosis, rash Results Laboratory Results: WBC 9.4 10^3/uL (4.0-10.5) 01/08/20 05:12 RBC 3.95 10^6/uL (4.35-5.55) L 01/08/20 05:12 Hgb 13.1 g/dL (13.5-17.0) L 01/08/20 05:12 Hct 36.2 % (37.9-51.0) L 01/08/20 05:12 MCV 92 fl (80-97) 01/08/20 05:12 MCH 33.1 pg (27.0-33.4) 01/08/20 05:12 MCHC 36.1 g/dL (32.0-36.0) H 01/08/20 05:12 RDW 12.3 % (11.5-14.0) 01/08/20 05:12 Plt Count 220 10^3/uL (150-450) 01/08/20 05:12 Lymph % (Auto) 7.5 % (13-45) L 01/05/20 08:26 [place] % (Auto) 9.8 % (3-13) 01/05/20 08:26 Eos % (Auto) 0.5 % (0-6) 01/05/20 08:26 Baso % (Auto) 0.5 % (0-2) 01/05/20 08:26 Absolute Neuts (auto) 12.0 10^3/uL (1.7-8.2) H 01/05/20 08:26 Absolute Lymphs (auto) 1.1 10^3/uL (0.5-4.7) 01/05/20 08:26 Absolute Monos (auto) 1.4 10^3/uL (0.1-1.4) 01/05/20 08:26 Absolute Eos (auto) 0.1 10^3/uL (0.0-0.6) 01/05/20 08:26 Absolute Basos (auto) 0.1 10^3/uL (0.0-0.2) 01/05/20 08:26 Seg Neutrophils % 81.7 % (42-78) H 01/05/20 08:26 Sodium 135.0 mmol/L (137-145) L 01/08/20 05:12 Potassium 4.1 mmol/L (3.6-5.0) 01/08/20 05:12 Chloride 104 mmol/L (98-107) 01/08/20 05:12 Carbon Dioxide 25 mmol/L (22-30) 01/08/20 05:12 Anion Gap 6 (5-19) 01/08/20 05:12 BUN 9 mg/dL (7-20) 01/08/20 05:12 Creatinine 0.98 mg/dL (0.52-1.25) 01/08/20 05:12 Est GFR ( Amer) > 60 (>60) 01/08/20 05:12 Est GFR (MDRD) Non-Af > 60 (>60) 01/08/20 05:12 Glucose 96 mg/dL (75-110) 01/08/20 05:12 Lactic Acid 1.0 mmol/L (0.7-2.1) 01/05/20 09:44 Calcium 9.2 mg/dL (8.4-10.2) 01/08/20 05:12 Total Bilirubin 1.2 mg/dL (0.2-1.3) 01/05/20 08:26 Direct Bilirubin 0.0 mg/dL (0.0-0.4) 01/05/20 08:26 Neonat Total Bilirubin Not Reportable 01/05/20 08:26 Neonat Direct Bilirubin Not Reportable 01/05/20 08:26 Neonat Indirect Bili Not Reportable 01/05/20 08:26 AST 31 U/L (17-59) 01/05/20 08:26 ALT 35 U/L (<50) 01/05/20 08:26 Alkaline Phosphatase 95 U/L (38-126) 01/05/20 08:26 Total Protein 8.2 g/dL (6.3-8.2) 01/05/20 08:26 Albumin 4.7 g/dL (3.5-5.0) 01/05/20 08:26 Lipase 49.3 U/L (23-300) 01/05/20 08:26 Urine Color DARK YELLOW 01/05/20 08:24 Urine Appearance SLIGHTLY-CLOUDY 01/05/20 08:24 Urine pH 5.0 (5.0-9.0) 01/05/20 08:24 Ur Specific [place] 1.026 01/05/20 08:24 Urine Protein 30 mg/dL (NEGATIVE) H 01/05/20 08:24 Urine Glucose (UA) NEGATIVE mg/dL (NEGATIVE) 01/05/20 08:24 Urine Ketones NEGATIVE mg/dL (NEGATIVE) 01/05/20 08:24 Urine Blood NEGATIVE (NEGATIVE) 01/05/20 08:24 Urine Nitrite NEGATIVE (NEGATIVE) 01/05/20 08:24 Urine Bilirubin NEGATIVE (NEGATIVE) 01/05/20 08:24 Urine Urobilinogen NEGATIVE mg/dL (<2.0) 01/05/20 08:24 Ur Leukocyte Esterase NEGATIVE (NEGATIVE) 01/05/20 08:24 Urine WBC (Auto) 1 /HPF 01/05/20 08:24 Urine RBC (Auto) 0 /HPF 01/05/20 08:24 U Hyaline Cast (Auto) 1 /LPF 01/05/20 08:24 Urine Mucus (Auto) MANY /LPF 01/05/20 08:24 Urine Ascorbic Acid NEGATIVE (NEGATIVE) 01/05/20 08:24 POC Stool Occult Blood NEGATIVE (NEGATIVE) 01/05/20 14:33 Stool for White Cells NO WBCs SEEN 01/08/20 08:30 Urine Opiates Screen NEGATIVE 01/05/20 08:24 Urine Methadone Screen NEGATIVE 01/05/20 08:24 Ur Barbiturates Screen NEGATIVE 01/05/20 08:24 Ur Phencyclidine Scrn NEGATIVE 01/05/20 08:24 Ur Amphetamines Screen NEGATIVE 01/05/20 08:24 U Benzodiazepines Scrn NEGATIVE 01/05/20 08:24 Urine Cocaine Screen NEGATIVE 01/05/20 08:24 U Marijuana (THC) Screen UNCONFIRMED POSITIVE 01/05/20 08:24 Impressions: Abdomen/Pelvis CT 01/05/20 00:00 IMPRESSION: Persistent inflammatory changes associated with abnormal sigmoid colon. Differential is refractory diverticulitis versus necrosis associated with underlying mass. No abscess. Chest X-Ray 01/05/20 17:04 IMPRESSION: 1. NO ACUTE RADIOGRAPHIC FINDING IN THE CHEST. Plan Plan of Treatment: Patient is discharged home in stable condition. He is advised to follow-up with his primary care provider within 1 week. Follow-up with Dr. Scott as scheduled on 01/18/2020. He is instructed to complete his full course of antibiotics. He is encouraged to eat a soft, low residue diet and to advance slowly as tolerated. Drink plenty of fluids. Return to the emergency department as needed for concerning symptoms. Time Spent: Greater than 30 Minutes Stroke Is this a Stroke Patient?: No Acute Heart Failure - Is this a Heart Failure Patient?: No
== END 2020-01-08 13:45 | disposition home or self-care (01) | DRG 392 ==
LOC: ER 06:39 → EH 16:05 → 4N 18:08
PROVIDERS: ADMIT Hospitalist; ATTEND Registered Nurse
DX: K57.32 Diverticulitis of large intestine without perforation or abscess without bleeding (principal); K21.9 Gastro-esophageal reflux disease without esophagitis; D72.829 Elevated white blood cell count, unspecified; F10.20 Alcohol dependence, uncomplicated; F12.90 Cannabis use, unspecified, uncomplicated; F17.210 Nicotine dependence, cigarettes, uncomplicated; Y90.9 Presence of alcohol in blood, level not specified
CPT/HCPCS: 36415; 71045; 74177; 80048; 80053; 80307; 81001; 82270; 83605; 83690; 85025; 85027; 87040; 87045; 87205; 89055; 93005; 93010; 96361; 96365; 96367; 96374; 96375; 96376; 99285; J1170; J1644; J1885; J2405; J2543; J3370; J7030; J7050; J7060

== ENCOUNTER 2020-01-16 10:39 | Emergency (ER) | payer BC ==
--- NOTE | 2020-01-16 12:16 | RADIOLOGY REPORT (SQ) ---
EXAM DESCRIPTION: CHEST 2 VIEWS IMAGES COMPLETED DATE/TIME: 01/16/2020 11:54 am REASON FOR STUDY: Bilateral pedal edema COMPARISON: None. EXAM PARAMETERS: NUMBER OF VIEWS: two views TECHNIQUE: Digital Frontal and Lateral radiographic views of the chest acquired. RADIATION DOSE: NA LIMITATIONS: none FINDINGS: LUNGS AND PLEURA: No opacities, masses or pneumothorax. No pleural effusion. MEDIASTINUM AND HILAR STRUCTURES: No masses or contour abnormalities. HEART AND VASCULAR STRUCTURES: Heart normal size. No evidence for failure. BONES: No acute findings. HARDWARE: None in the chest. OTHER: No other significant finding. IMPRESSION: NO ACUTE RADIOGRAPHIC FINDING IN THE CHEST. TECHNICAL DOCUMENTATION: JOB ID: [id number] 2010 [email or web address]- All Rights Reserved Reading location - IP/workstation name: [email or web address]
[2020-01-16 12:20] LABS: ABSOLUTE BASOPHILS # (AUTO) 0.1 10^3/uL (0.0-0.2); ABSOLUTE EOSINOPHILS # (AUTO) 0.1 10^3/uL (0.0-0.6); ABSOLUTE LYMPHOCYTES (AUTO) 1.4 10^3/uL (0.5-4.7); ABSOLUTE MONOCYTES (AUTO) 0.7 10^3/uL (0.1-1.4); ABSOLUTE NEUT (AUTO) 6.7 10^3/uL (1.7-8.2); BASOPHILS % (AUTO) 0.9 % (0-2); EOSINOPHILS % (AUTO) 1.2 % (0-6); HEMATOCRIT 43.3 % (37.9-51.0); HEMOGLOBIN 15.4 g/dL (13.5-17.0); LYMPHOCYTES % (AUTO) 15.5 % (13-45); MEAN CORPUSCULAR HEMOGLOBIN 32.9 pg (27.0-33.4); MEAN CORPUSCULAR HGB CONC 35.6 g/dL (32.0-36.0); MEAN CORPUSCULAR VOLUME 93 fl (80-97); MONOCYTES % (AUTO) 7.8 % (3-13); PLATELET COUNT 289 10^3/uL (150-450); RED BLOOD COUNT 4.68 10^6/uL (4.35-5.55); RED CELL DISTRIBUTION WIDTH 12.3 % (11.5-14.0); SEGMENTED NEUTROPHILS % (AUTO) 74.6 % (42-78); TOTAL CELLS COUNTED % (AUTO) 100 %
[2020-01-16 12:29] LABS: APPEARANCE,URINE CLEAR; BILIRUBIN,URINE NEGATIVE (NEGATIVE); COLOR,URINE YELLOW; GLUCOSE, URINE NEGATIVE (NEGATIVE); KETONES,URINE NEGATIVE (NEGATIVE); LEUKOCYTE ESTERASE,URINE NEGATIVE (NEGATIVE); NITRITE,URINE NEGATIVE (NEGATIVE); PROTEIN,URINE NEGATIVE (NEGATIVE); UROBILINOGEN,URINE NEGATIVE mg/dL (<2.0)
[2020-01-16 12:37] LABS: ALBUMIN 4.7 g/dL (3.5-5.0); ALKALINE PHOSPHATASE 95 U/L (38-126); ANION GAP 8 (5-19); ASPARTATE AMINO TRANSFERASE 35 U/L (17-59); BILIRUBIN,DIRECT 0.1 mg/dL (0.0-0.4); BILIRUBIN,TOTAL 0.8 mg/dL (0.2-1.3); BLOOD UREA NITROGEN 15 mg/dL (7-20); CALCIUM 10.4 mg/dL (8.4-10.2); CARBON DIOXIDE 30 mmol/L (22-30); CHLORIDE 98 mmol/L (98-107); GLUCOSE 108 mg/dL (75-110); POTASSIUM 4.7 mmol/L (3.6-5.0); TOTAL PROTEIN 8.5 g/dL (6.3-8.2); URIC ACID 5.1 mg/dL (3.5-8.5)
[2020-01-16 12:47] LABS: URINE AMPHETAMINES SCREEN NEGATIVE; URINE BARBITURATES SCREEN NEGATIVE; URINE COCAINE SCREEN NEGATIVE; URINE METHADONE SCREEN NEGATIVE; URINE PHENCYCLIDINE SCREEN NEGATIVE
[2020-01-16 12:49] LABS: URINE BENZODIAZEPINES SCREEN UNCONFIRMED POSITIVE; URINE MARIJUANA (THC) SCREEN UNCONFIRMED POSITIVE
[2020-01-16] MEDS ORDERED: DEXAMETHASONE SOD PHOS INJ 10 MG/1 ML VIAL IV ONE (13:59)
[2020-01-16] MEDS ORDERED: KETOROLAC TROMETHAMINE INJ/PF 30 MG/1 ML SDV IV ONE (14:00)
[2020-01-16] MEDS ORDERED: FAMOTIDINE INJ/PF 20 MG/2 ML SDV IV ONE (14:01)
[2020-01-16] MEDS ORDERED: FUROSEMIDE INJ/PF 20 MG/2 ML SDV IV ONE (14:01)
--- NOTE | 2020-01-16 14:53 | ER Document Report ---
ED General - General Chief Complaint: Leg Swelling Stated Complaint: FEET/LEG PAIN Time Seen by Provider: 01/16/20 11:23 Notes: 50-year-old man presents to the emergency department with a history of treated for diverticulitis in the hospital over a week ago. He was given Zosyn and vancomycin IV. States that he got home before he left the hospital he was developing swelling in his ankles and feet this has persisted and become more painful. He is presently taking Augmentin states that his abdominal symptoms have resolved however the swelling in his feet and ankles have been persistent and causing some difficulty when he walks. Apparently diagnosed with possible gout prior to this hospital discharge, patient was put on allopurinol 300 mg. He states that the symptoms have continued to worsen and now having a difficult time walking. Left ankle with swelling and tenderness. TRAVEL OUTSIDE OF THE [place] IN LAST 30 DAYS: No - Related Data Allergies/Adverse Reactions: No Known Allergies Allergy (Verified 12/23/16 15:36) Home Medications: Amoxicillin, Folic Acid, Zofran, Oxycodone, Allopurinol Past Medical History - Social History Smoking Status: Unknown if Ever Smoked Frequency of alcohol use: Social Family History: Reviewed & Not Pertinent Neurological Medical History: Denies: Hx Cerebrovascular Accident Renal/ Medical History: Denies: Hx Peritoneal Dialysis GI Medical History: Reports: Hx Diverticulitis, Hx Gastroesophageal Reflux Di sease Musculoskeletal Medical History: Reports Hx Arthritis - ankle from injury Psychiatric Medical History: Denies: Hx Depression Past Surgical History: Reports: Hx Orthopedic Surgery - left ankle, Other - Percutaneous drain placement related to perforated diverticulum - Immunizations Hx Diphtheria, Pertussis, Tetanus Vaccination: No Review of Systems - Review of Systems Notes: Constitutional: Negative for fever. HENT: Negative for sore throat. Eyes: Negative for visual changes. Cardiovascular: Negative for chest pain. Respiratory: Negative for shortness of breath. Gastrointestinal: Negative for abdominal pain, vomiting or diarrhea. Genitourinary: Negative for dysuria. Musculoskeletal: + Bilateral lower extremity swelling and pain Skin: Negative for rash. Neurological: Negative for headaches, weakness or numbness. 10 point ROS negative except as marked above and in HPI. Physical Exam - Vital signs Vitals: Temp Pulse Resp BP Pulse Ox 98.5 F 92 16 132/87 H 93 01/16/20 10:51 01/16/20 10:51 01/16/20 10:51 01/16/20 10:51 01/16/20 10:51 - Notes Notes: PHYSICAL EXAMINATION: Physical Exam: General: Well-nourished well-developed in no acute distress HEENT: NC/AT, pupils equal round and reactive to light, MM moist,nares clear, oropharynx clear, airway patent Neck: supple, no adenopathy, no masses. Good range of motion Lungs: clear, no wheezing, no rales no rhonchi CVS: Regular rate and rhythm no murmur gallop or rub Abdomen: Soft, active, nontender, no masses, no hepatosplenomegaly Ext: Bilateral lower extremity edema, tenderness to palpation, 2+ edema. Neuro: Alert and responsive, moving all 4 extremities on command, cranial nerves intact, no focal findings Skin: Intact no open lesions, no rash PSYCH: Normal mood, normal affect. Course - Re-evaluation Re-evalutation: 01/16/20 16:07 Patient was given IV Decadron and Toradol, noticing improvement in his discomfort and decrease in his swelling. Is being discharged home with prednisone and Naprosyn. I have asked the patient to follow-up with his primary care doctor for further management if needed. He and his significant other k nowledge he will follow-up on Saturday. - Vital Signs Vital signs: Temp Pulse Resp BP Pulse Ox 98.5 F 92 16 132/87 H 93 01/16/20 10:51 01/16/20 10:51 01/16/20 10:51 01/16/20 10:51 01/16/20 10:51 - Laboratory Result Diagrams: 01/16/20 11:45 01/16/20 11:45 Laboratory results interpreted by me: 01/16/20 11:45 Sodium 135.8 L Calcium 10.4 H Total Protein 8.5 H 01/16/20 14:58 I have reviewed laboratory data and used this information for the treatment decisions regarding the patient. - Diagnostic Test Radiology reviewed: Image reviewed, Reports reviewed Radiology results interpreted by me: 01/16/20 16:06 Chest x-ray 2 view: No acute cardiopulmonary findings. 01/16/20 16:07 Discharge - Discharge Clinical Impression: Gouty arthritis of both ankles Condition: Good Disposition: HOME, SELF-CARE Instructions: Gout ([facility]), Gout Diet ([facility]) Additional Instructions: You were seen in the emergency department with swelling and pain in your ankles bilaterally. Your symptoms are suggestive of gout. You are being given medications prednisone and Naprosyn for treatment of the symptoms. Please keep your ankles and feet elevated as much as possible and use the medications as prescribed and follow-up with your primary care doctor as needed. HOME CARE INSTRUCTIONS & INFORMATION: Thank you for choosing us for your medical needs. We hope you're satisfied with the care you received. After you leave, you must properly care for your problem and, at the same time, observe its progress. Any condition can change. Some illnesses can change rapidly over hours or days. If your condition worsens, return to the Emergency Department or see your physician promptly. ABOUT YOUR X-RAYS AND EKG'S: If you had an EKG or X-rays taken, they have been read by the Emergency Physician. The X-rays and EKG's will also be read by a Radiologist or Cryptologic Technician Operator/Analyst within 24 hours. If discrepancies are noted, you will be notified by telephone. Please be certain the ED has a correct telephone number & address where you can be reached. Also, realize that some fractures or abnormalities do not show up on initial X-rays. If your symptoms continue, see your physician. ABOUT YOUR LABORATORY TEST: If you had laboratory tests, the results have been reviewed by the Emergency Physician. Some test results (for example cultures) may not be available for several days. You will be contacted if any test result shows you need additional treatment. Please be certain the ED has a correct telephone number and address where you can be reached. ABOUT YOUR MEDICATIONS: You will receive instructions on how to take your m edicine on the prescription label you receive. Additional information may be provided by the Pharmacy. If you have questions afterwards, call the ED for clarification or further instructions. Some prescribed medications may cause drowsiness. Do not perform tasks such as driving a car or operating machinery without consulting your Pharmacist. If you feel you need a refill of pain medication, your condition will need re-evaluation. Please do not call for a refill of any medication. ABOUT YOUR SIGNATURE: Signature of this document acknowledges to followin. Understanding that you received emergency treatment and that you may be released before al medical problems are known or treated. Please be certain the ED has a correct phone number & address where you can be reached. 2. Acknowledgement that you will arrange for follow-up care as recommended. 3. Authorization for the Emergency Physician to provide information to your follow-up Physician in order to maximize your care. AT ANY TIME, IF YOUR SYMPTOMS CHANGE SIGNIFICANTLY OR WORSEN OR YOU DEVELOP NEW SYMPTOMS, RETURN TO THE EMERGENCY DEPARTMENT IMMEDIATELY FOR RE-EVALUATION. OUR GOAL IS TO PROVIDE EXCELLENT MEDICAL CARE! WE HOPE THAT WE HAVE MET YOUR EXPECTATIONS DURING YOUR EMERGENCY DEPARTMENT VISIT AND THAT YOU FEEL YOU HAVE RECEIVED EXCELLENT CARE! Prescriptions: Prednisone [Deltasone 20 mg Tablet] 20 mg PO BID #10 tablet Naproxen [Naprosyn] 500 mg PO BID #20 tablet
[2020-01-16 16:37] VITALS: BP 130/85
== END 2020-01-16 16:35 | disposition home or self-care (01) ==
LOC: ER 10:39
DX: M10.9 Gout, unspecified (principal); K57.92 Diverticulitis of intestine, part unspecified, without perforation or abscess without bleeding; Z79.899 Other long term (current) drug therapy; Z79.891 Long term (current) use of opiate analgesic
CPT/HCPCS: 99283; 96374; 96375; 36415; 84550; 85025; 80053; 81001; 80307; 71046; J1940; J1885; S0028; J1100